=== PATIENT | male | born 1985 | race Two or more races ===

== ENCOUNTER 2018-09-23 07:08 | Emergency (ER) | payer SELFPAY ==
[~2018-09-23] VITALS: Ht 180.3 cm; Wt 80.7 kg
--- NOTE | 2018-09-23 07:16 | NUR ---
patient came in the ER [id number] c/o tingling sensation on both arms and feet after smoking marijuana an su ago, denies any chest pain. On room air, breathing evenly and unlabored. Ambulatory with steady gait. Connected to the monitor and pulse ox. kept comfortable, will cotninue to monitor accordingly. Dr. Russell at bedside for eval.
--- NOTE | 2018-09-23 07:18 | NUR ---
urine collected and sent to lab.
[2018-09-23] MEDS ORDERED: LORAZEPAM 0.5 MG TABLET ONE (07:23)
[2018-09-23] MEDS ORDERED: LORAZEPAM 1 MG TABLET PO ONE (07:30)
[2018-09-23 08:17] VITALS: BP 135/77
--- NOTE | 2018-09-23 08:19 | NUR ---
Patient discharged to home in stable condition. Written and verbal after care instructions given. Patient verbalizes understanding of instruction.
== END 2018-09-23 08:19 | disposition home or self-care (01) ==
LOC: ER 07:08
DX: F12.10 Cannabis abuse, uncomplicated (principal); F41.9 Anxiety disorder, unspecified; F43.0 Acute stress reaction; R20.2 Paresthesia of skin; R00.0 Tachycardia, unspecified; I44.0 Atrioventricular block, first degree; I45.10 Unspecified right bundle-branch block

== ENCOUNTER 2018-10-01 05:05 | Emergency (ER) | payer SELFPAY ==
[~2018-10-01] VITALS: Ht 185.4 cm; Wt 87.1 kg
--- NOTE | 2018-10-01 05:30 | NUR ---
BIBSELF WITH FRIEND FROM HOME. TO ER BED 10. AAOX4. NAD NOTED , BREATHING EVEN AND UNLABORED. AMBULATORY. C/O L SIDE BODY TINGLING AND L SIDE OF HEAD PAIN EXTENDING TO NECK 5/10 TIGHNESS FEELING. NO NEURO DEFICIT NOTED. AWAITING MD FOR LILY
--- NOTE | 2018-10-01 06:09 | NUR ---
MD AT BEDSIDE FOR EVAL. ORDERS RECEIVED, NOTED AND CARRIED OUT
--- NOTE | 2018-10-01 06:48 | NUR ---
LAB AT BEDSIDE FOR DRAW
[2018-10-01] MEDS ORDERED: IBUPROFEN 600 MG TABLET PO ONE ×2 (07:00→07:03)
[2018-10-01 07:10] LABS: BASOPHILS % (AUTO) 0.2 % (0.0-2.0); EOSINOPHILS % (AUTO) 0.6 % (0.0-6.0); HEMATOCRIT 44 % (39-51); HEMOGLOBIN 15.2 g/dL (13.5-17.5); LYMPHOCYTES % (AUTO) 14.5 % (20.0-44.0); MEAN CORPUSCULAR HGB CONC 35 g/dl (31.0-36.0); MEAN CORPUSCULAR VOLUME 90 fL (80-96); MONOCYTES # (AUTO) 0.4 /CMM (0.1-1.30); MONOCYTES % (AUTO) 6.3 % (2.0-12.0); NEUTROPHILS # (AUTO) 5.3 /CMM (1.8-8.9); NEUTROPHILS % (AUTO) 78.4 % (43.0-81.0); PLATELET COUNT (AUTO) 224 /CMM (150-450); RED BLOOD CELL COUNT(AUTO) 4.86 MIL/uL (4.5-6.0); WHITE BLOOD COUNT (AUTO) 6.8 K/uL (4.3-11.0)
--- NOTE | 2018-10-01 07:30 | NUR ---
REPORT RECEIVED FROM MARI LOPEZ FOR MARIE
[2018-10-01 07:37] LABS: CALCIUM, SERUM 9.3 mg/dL (8.5-10.1); POTASSIUM 3.5 mmol/L (3.5-5.1)
--- NOTE | 2018-10-01 08:06 | NUR ---
Patient discharged to home in stable condition. Written and verbal after care instructions given. Patient verbalizes understanding of instruction.
[2018-10-01 08:07] VITALS: BP 128/71
== END 2018-10-01 08:08 | disposition home or self-care (01) ==
LOC: ER 05:08
DX: R20.0 Anesthesia of skin (principal); F41.9 Anxiety disorder, unspecified; Z98.890 Other specified postprocedural states
CPT/HCPCS: 36415; 80048-TC; 84484-TC; 85025-TC